=== PATIENT | male | born 1980 | race American Indian/Alaskan Native ===

== ENCOUNTER 2023-02-03 00:33 | Emergency (ER) | payer SELFPAY ==
[2023-02-03] MEDS ORDERED: Clindamycin HCl 150 MG Cap PO ONE (00:34)
[2023-02-03] MEDS ORDERED: Sodium Chloride 0.9% 1,000 ML IV ONE (00:54)
[2023-02-03] MEDS ORDERED: Ketorolac 30 MG/ML SDV IVPUSH ONE (00:54)
[2023-02-03 01:25] LABS: HEMOGLOBIN A1C 5.6 % (<5.7)
[2023-02-03] MEDS ORDERED: Clindamycin HCl 150 MG Cap ONE (01:59)
[2023-02-03] MEDS ORDERED: Mupirocin Oint 22 GM Tube TOP ONE (02:01)
== END 2023-02-03 02:48 ==
LOC: MERGE 00:33 → DL.ED 00:33
DX: S81.801A Unspecified open wound, right lower leg, initial encounter (principal); L03.115 Cellulitis of right lower limb
CPT/HCPCS: 36415; 82947; 83036; 83605; 85025; 86140; 87040; 96365; 96375; 99283; A9270; J1885; J3370; J7030; J7050